=== PATIENT | male | born 1945 | race Caucasian/White ===

== ENCOUNTER → 2016-09-20 | Outpatient (CLI) | payer MEDICARE, OTHER ==
[2016-09-20 10:05] LABS: HEMATOCRIT 43.1 % (39.0-51.0); MEAN CELL VOLUME 90.1 FL (80.0-100.0); MEAN CORPUSCULAR HEMOGLOBIN 31.4 PG (27.0-34.0); MEAN CORPUSCULAR HGB CONC 34.9 % (32.0-36.0); PLATELET COUNT 161 TH/MM3 (150-450); RED BLOOD COUNT 4.79 MIL/MM3 (4.50-5.90); RED CELL DISTRIBUTION WIDTH 12.8 % (11.6-17.2); REVIEW FLAG FINAL; WHITE BLOOD COUNT 4.5 TH/MM3 (4.0-11.0)
[2016-09-20 10:44] LABS: ALT (GPT) 69 U/L (12-78)
[2016-09-20 10:53] LABS: ANION GAP 7 MEQ/L (5-15); AST (GOT) 45 U/L (15-37); BICARBONATE 28.3 MEQ/L (21.0-32.0); BLOOD UREA NITROGEN 15 MG/DL (7-18); CHLORIDE 101 MEQ/L (98-107); GLOMERULAR FILTRATION RATE 78 ML/MIN (>89); GLUCOSE,FASTING 161 MG/DL (74-99); SODIUM (NA) 136 MEQ/L (136-145)
[2016-09-20 10:57] LABS: ALKALINE PHOSPHATASE 56 U/L (45-117); HDL CHOLESTEROL 40.3 MG/DL (40.0-60.0); LDL CHOLESTEROL 72 MG/DL (0-99); POTASSIUM 4.2 MEQ/L (3.5-5.1); TOTAL BILIRUBIN ADULT 0.8 MG/DL (0.2-1.0)
[2016-09-20 17:13] LABS: HEMOGLOBIN A1a 0.9 %; HEMOGLOBIN A1b 1.3 %; HEMOGLOBIN Ao 86.5 %; HEMOGLOBIN LA1C 2.3 %; HEMOGLOBIN P3 3.4 %
== END ==
LOC: CLAB 09:38
PROVIDERS: ATTEND Family Medicine
DX: I10 Essential (primary) hypertension (principal); E78.5 Hyperlipidemia, unspecified; E11.9 Type 2 diabetes mellitus without complications; M50.30 Other cervical disc degeneration, unspecified cervical region; F32.9 Major depressive disorder, single episode, unspecified; N52.9 Male erectile dysfunction, unspecified; G47.00 Insomnia, unspecified
CPT/HCPCS: 36415; 80053; 80061; 83036; 84443; 85027

== ENCOUNTER → 2017-03-28 | Outpatient (CLI) | payer MEDICARE ==
[2017-03-28 10:20] LABS: HEMATOCRIT 42.4 % (39.0-51.0); HEMOGLOBIN 14.7 GM/DL (13.0-17.0); MEAN CELL VOLUME 91.4 FL (80.0-100.0); MEAN CORPUSCULAR HEMOGLOBIN 31.7 PG (27.0-34.0); MEAN CORPUSCULAR HGB CONC 34.7 % (32.0-36.0); MEAN PLATELET VOLUME 8.4 FL (7.0-11.0); PLATELET COUNT 163 TH/MM3 (150-450); RED BLOOD COUNT 4.64 MIL/MM3 (4.50-5.90); RED CELL DISTRIBUTION WIDTH 13.3 % (11.6-17.2); WHITE BLOOD COUNT 4.5 TH/MM3 (4.0-11.0)
[2017-03-28 10:50] LABS: ALKALINE PHOSPHATASE 64 U/L (45-117); HDL CHOLESTEROL 52.3 MG/DL (40.0-60.0); TOTAL BILIRUBIN ADULT 0.9 MG/DL (0.2-1.0); TOTAL PROTEIN 7.4 GM/DL (6.4-8.2)
[2017-03-28 10:56] LABS: ALBUMIN 4.2 GM/DL (3.4-5.0); ALT (GPT) 129 U/L (12-78); AST (GOT) 71 U/L (15-37); BICARBONATE 28.9 MEQ/L (21.0-32.0); BLOOD UREA NITROGEN 13 MG/DL (7-18); CALCIUM 8.8 MG/DL (8.5-10.1); CHLORIDE 104 MEQ/L (98-107); CHOLESTEROL 150 MG/DL (120-200); CHOLESTEROL/ HDL RATIO 2.86 RATIO; CREATININE 0.88 MG/DL (0.60-1.30); GLOMERULAR FILTRATION RATE 86 ML/MIN (>89); GLUCOSE,FASTING 170 MG/DL (74-99); LDL CHOLESTEROL 79 MG/DL (0-99); SODIUM (NA) 138 MEQ/L (136-145); TRIGLYCERIDES 93 MG/DL (42-150)
[2017-03-28 16:10] LABS: HEMOGLOBIN A1C 5.5 % (4.3-6.0)
== END ==
LOC: CLAB 09:53
PROVIDERS: ATTEND Family Medicine
DX: I10 Essential (primary) hypertension (principal); E11.9 Type 2 diabetes mellitus without complications; M40.30 Flatback syndrome, site unspecified; F32.9 Major depressive disorder, single episode, unspecified; G47.00 Insomnia, unspecified; I49.9 Cardiac arrhythmia, unspecified; H81.311 Aural vertigo, right ear; Z68.35 Body mass index [BMI] 35.0-35.9, adult; Z12.5 Encounter for screening for malignant neoplasm of prostate
CPT/HCPCS: 36415; 80053; 80061; 83036; 84153; 84443; 85027

== ENCOUNTER → 2017-08-14 | Outpatient (CLI) | payer MEDICARE ==
[2017-08-14 12:32] LABS: HEMATOCRIT 42.5 % (39.0-51.0); HEMOGLOBIN 14.9 GM/DL (13.0-17.0); MEAN CELL VOLUME 91.3 FL (80.0-100.0); MEAN CORPUSCULAR HEMOGLOBIN 32.1 PG (27.0-34.0); MEAN CORPUSCULAR HGB CONC 35.1 % (32.0-36.0); MEAN PLATELET VOLUME 8.6 FL (7.0-11.0); PLATELET COUNT 169 TH/MM3 (150-450); RED BLOOD COUNT 4.65 MIL/MM3 (4.50-5.90); RED CELL DISTRIBUTION WIDTH 12.8 % (11.6-17.2); WHITE BLOOD COUNT 4.5 TH/MM3 (4.0-11.0)
[2017-08-14 12:57] LABS: ALBUMIN 4.2 GM/DL (3.4-5.0); AST (GOT) 68 U/L (15-37); BICARBONATE 25.3 MEQ/L (21.0-32.0); BLOOD UREA NITROGEN 16 MG/DL (7-18); CALCIUM 9.4 MG/DL (8.5-10.1); CHLORIDE 103 MEQ/L (98-107); CREATININE 0.83 MG/DL (0.60-1.30); GLOMERULAR FILTRATION RATE 92 ML/MIN (>89); GLUCOSE,FASTING 151 MG/DL (74-99); SODIUM (NA) 140 MEQ/L (136-145)
[2017-08-14 12:58] LABS: ALT (GPT) 160 U/L (12-78); CHOLESTEROL 134 MG/DL (120-200)
[2017-08-14 13:09] LABS: ALKALINE PHOSPHATASE 67 U/L (45-117); CHOLESTEROL/ HDL RATIO 3.46 RATIO; HDL CHOLESTEROL 38.7 MG/DL (40.0-60.0); LDL CHOLESTEROL 71 MG/DL (0-99); TOTAL BILIRUBIN ADULT 0.8 MG/DL (0.2-1.0); TOTAL PROTEIN 7.4 GM/DL (6.4-8.2); TRIGLYCERIDES 121 MG/DL (42-150)
[2017-08-14 16:40] LABS: HEMOGLOBIN A1C 5.3 % (4.3-6.0)
[2017-08-19 17:49] LABS: 1-METHYLHISTIDINE 12 nmol/mL (<28); 3-METHYLHISTIDINE 4 nmol/mL (2-9); A-AMINO-N-BUTYRIC ACID 34 nmol/mL (9-37); ALANINE 303 nmol/mL (200-579); ALLO-ISOLEUCINE 2 nmol/mL (<5); ANSERINE 0 nmol/mL (<1); ARGININE 57 nmol/mL (32-120); ASPARAGINE 52 nmol/mL (37-92); B-ALANINE 24 nmol/mL (<29); BETAAMINOISOBUTYRIC ACID 2 nmol/mL (<5); CARNOSINE 0 nmol/mL (<1); CITRULLINE 20 nmol/mL (17-46); CYSTATHIONINE <1 nmol/mL (<5); CYSTINE 53 nmol/mL (3-95); ETHANOLAMINE <7 nmol/mL (<67); GAMMAAMINONBUTYRIC ACID 0 nmol/mL (<2); GLUTAMIC ACID 72 nmol/mL (13-113); GLUTAMINE 557 nmol/mL (371-957); GLYCINE 150 nmol/mL (126-490); HISTIDINE 71 nmol/mL (39-123); HYDROXYLYSINE 0 nmol/mL (<2); HYDROXYPROLINE 6 nmol/mL (4-29); ISOLEUCINE 71 nmol/mL (36-107); LEUCINE 125 nmol/mL (68-183); LYSINE 184 nmol/mL (103-255); METHIONINE 24 nmol/mL (4-44); ORNITHINE 53 nmol/mL (38-130); PHENYLALANINE 60 nmol/mL (35-80); PHOSPHOETHANOLAMINE <2 nmol/mL (<12); PHOSPHOSERINE 0 nmol/mL (<18); PROLINE 135 nmol/mL (97-368); SARCOSINE 1 nmol/mL (<5); SERINE 125 nmol/mL (63-187); TAURINE 55 nmol/mL (42-156); THREONINE 97 nmol/mL (85-231); TRYPTOPHAN 50 nmol/mL (29-77); TYROSINE 70 nmol/mL (31-90); VALINE 299 nmol/mL (136-309)
== END ==
LOC: CLAB 11:24
PROVIDERS: ATTEND Family Medicine
DX: I10 Essential (primary) hypertension (principal); E78.5 Hyperlipidemia, unspecified; E11.9 Type 2 diabetes mellitus without complications; M50.30 Other cervical disc degeneration, unspecified cervical region; F32.9 Major depressive disorder, single episode, unspecified; G47.00 Insomnia, unspecified; I49.9 Cardiac arrhythmia, unspecified; H81.311 Aural vertigo, right ear; Z68.35 Body mass index [BMI] 35.0-35.9, adult
CPT/HCPCS: 36415; 80053; 80061; 82139; 83036; 84443; 85027